=== PATIENT | male | born 1935 | race Caucasian/White ===

== ENCOUNTER → 2017-02-13 | Outpatient (CLI) | payer MEDICARE, BC | END | disposition home or self-care (01) | LOC: LAB 10:40 | PROVIDERS: ATTEND Urology | DX: Z12.5 Encounter for screening for malignant neoplasm of prostate (principal) | CPT/HCPCS: G0103 ==

== ENCOUNTER → 2017-03-13 | Outpatient (CLI) | payer MEDICARE, BC | END | disposition home or self-care (01) | LOC: LAB 09:28 | PROVIDERS: ATTEND Urology | DX: Z12.5 Encounter for screening for malignant neoplasm of prostate (principal); C61 Malignant neoplasm of prostate | CPT/HCPCS: G0103 ==

== ENCOUNTER → 2018-03-09 | Outpatient (CLI) | payer MEDICARE, BC ==
[2018-03-09 10:02] LABS: ALBUMIN 3.8 g/dL (3.4-5.0); ALBUMIN/GLOBULIN RATIO 1.2 (1.0-1.7); CREATININE 1.1 mg/dL (0.7-1.3); GFR 63.8; POTASSIUM 3.7 mmol/L (3.5-5.1); TOTAL BILIRUBIN 0.7 mg/dL (0.2-1.0); TOTAL PROTEIN 6.9 g/dL (6.4-8.2)
== END | disposition home or self-care (01) ==
LOC: LAB 08:44
PROVIDERS: ATTEND Family Medicine
DX: E78.2 Mixed hyperlipidemia (principal)
CPT/HCPCS: 36415; 80053; 80061

== ENCOUNTER → 2018-03-09 | Outpatient (CLI) | payer MEDICARE, BC ==
[2018-03-09 10:44] LABS: BASO % 1 % (0-3); EOS # 0.1 x10^3/uL (0.0-0.7); EOS % 2 % (0-3); LYMPH # 0.9 x10^3/uL (1.0-4.8); LYMPH % 17 % (24-48); MEAN CORPUSCULAR HEMOGLOBIN 32 pg (25-35); MEAN CORPUSCULAR HGB CONC 34 g/dL (31-37); MEAN CORPUSCULAR VOLUME 93 fL (79-100); MONO # 0.6 x10^3/uL (0.0-1.1); MONO % 10 % (0-9); NEUT # 3.8 x10^3uL (1.8-7.7); NEUT % 70 % (31-73); PLATELET COUNT 142 x10^3/uL (140-400); RED BLOOD COUNT 4.74 x10^6/uL (4.30-5.70); RED CELL DISTRIBUTION WIDTH 13.9 % (11.5-14.5); WHITE BLOOD COUNT 5.4 x10^3/uL (4.0-11.0)
== END | disposition home or self-care (01) ==
LOC: LAB 08:47
PROVIDERS: ATTEND Radiology Radiation Oncology
DX: C61 Malignant neoplasm of prostate (principal); E78.2 Mixed hyperlipidemia
CPT/HCPCS: 36415; 85025

== ENCOUNTER → 2018-04-06 | Outpatient (CLI) | payer MEDICARE, BC ==
[2018-04-06 09:22] LABS: BASO % 1 % (0-3); EOS # 0.1 x10^3/uL (0.0-0.7); EOS % 1 % (0-3); HEMATOCRIT 42.5 % (39.0-53.0); HEMOGLOBIN 14.6 g/dL (13.0-17.5); LYMPH # 0.7 x10^3/uL (1.0-4.8); LYMPH % 13 % (24-48); MEAN CORPUSCULAR HEMOGLOBIN 32 pg (25-35); MEAN CORPUSCULAR HGB CONC 34 g/dL (31-37); MEAN CORPUSCULAR VOLUME 94 fL (79-100); MONO # 0.4 x10^3/uL (0.0-1.1); MONO % 7 % (0-9); NEUT % 78 % (31-73); PLATELET COUNT 162 x10^3/uL (140-400); RED BLOOD COUNT 4.54 x10^6/uL (4.30-5.70); RED CELL DISTRIBUTION WIDTH 14.1 % (11.5-14.5); WHITE BLOOD COUNT 5.1 x10^3/uL (4.0-11.0)
== END | disposition home or self-care (01) ==
LOC: LAB 08:16
PROVIDERS: ATTEND Radiology Radiation Oncology
DX: C61 Malignant neoplasm of prostate (principal)
CPT/HCPCS: 36415; 85025

== ENCOUNTER → 2018-04-09 | Outpatient (CLI) | payer MEDICARE, BC ==
--- NOTE | 2018-04-09 17:17 | RAD ---
EXAM: Right arm sonogram. HISTORY: Palpable lump. TECHNIQUE: Sonographic imaging of the right antecubital fossa at the site of palpable concern was performed. COMPARISON: None. FINDINGS: There is a 4.9 x 2.3 x 0.6 cm lipoma or focal encapsulated fat within the antecubital fossa at the site of palpable concern. No suspicious lesion is seen within this location. IMPRESSION: Suspected 4.9 cm lipoma or encapsulated fat within the antecubital fossa at the site of palpable concern. Electronically signed by: Pretty Jaquez MD (04/09/2018 5:13 PM) [facility]
--- NOTE | 2018-04-09 17:56 | RAD ---
EXAM: Right of extremity venous Doppler sonogram. HISTORY: Swelling. TECHNIQUE: Rocha scale and color Doppler sonographic evaluation of the right upper extremity veins with spectral waveform analysis was performed. FINDINGS: There is normal color flow, normal compressibility and there are normal spectral waveforms in the right upper extremity veins. IMPRESSION: No Doppler evidence of upper extremity venous thrombosis. Electronically signed by: Pretty Jaquez MD (04/09/2018 5:53 PM) [facility]
== END | disposition home or self-care (01) ==
LOC: US 15:27
PROVIDERS: ATTEND Family Medicine
DX: M79.601 Pain in right arm (principal); M79.89 Other specified soft tissue disorders; E78.2 Mixed hyperlipidemia
CPT/HCPCS: 76881; 93971

== ENCOUNTER → 2018-05-04 | Outpatient (CLI) | payer MEDICARE, BC ==
[2018-05-04 08:55] LABS: BASO % 0 % (0-3); EOS # 0.1 x10^3/uL (0.0-0.7); EOS % 1 % (0-3); HEMATOCRIT 42.1 % (39.0-53.0); HEMOGLOBIN 14.4 g/dL (13.0-17.5); LYMPH # 0.7 x10^3/uL (1.0-4.8); LYMPH % 12 % (24-48); MEAN CORPUSCULAR HEMOGLOBIN 32 pg (25-35); MEAN CORPUSCULAR HGB CONC 34 g/dL (31-37); MEAN CORPUSCULAR VOLUME 94 fL (79-100); MONO # 0.4 x10^3/uL (0.0-1.1); MONO % 7 % (0-9); NEUT # 4.4 x10^3uL (1.8-7.7); NEUT % 80 % (31-73); PLATELET COUNT 158 x10^3/uL (140-400); RED BLOOD COUNT 4.47 x10^6/uL (4.30-5.70); RED CELL DISTRIBUTION WIDTH 14.3 % (11.5-14.5); WHITE BLOOD COUNT 5.5 x10^3/uL (4.0-11.0)
== END | disposition home or self-care (01) ==
LOC: LAB 08:06
PROVIDERS: ATTEND Radiology Radiation Oncology
DX: C61 Malignant neoplasm of prostate (principal)
CPT/HCPCS: 36415; 85025

== ENCOUNTER → 2018-06-01 | Outpatient (CLI) | payer MEDICARE, BC ==
[2018-06-01 08:57] LABS: BASO % 1 % (0-3); EOS # 0.1 x10^3/uL (0.0-0.7); EOS % 2 % (0-3); HEMATOCRIT 40.6 % (39.0-53.0); HEMOGLOBIN 13.9 g/dL (13.0-17.5); LYMPH # 0.5 x10^3/uL (1.0-4.8); LYMPH % 12 % (24-48); MEAN CORPUSCULAR HEMOGLOBIN 33 pg (25-35); MEAN CORPUSCULAR HGB CONC 34 g/dL (31-37); MEAN CORPUSCULAR VOLUME 95 fL (79-100); MONO # 0.5 x10^3/uL (0.0-1.1); MONO % 11 % (0-9); NEUT # 3.2 x10^3uL (1.8-7.7); NEUT % 75 % (31-73); PLATELET COUNT 155 x10^3/uL (140-400); RED BLOOD COUNT 4.28 x10^6/uL (4.30-5.70); RED CELL DISTRIBUTION WIDTH 14.4 % (11.5-14.5); WHITE BLOOD COUNT 4.4 x10^3/uL (4.0-11.0)
== END | disposition home or self-care (01) ==
LOC: LAB 07:57
PROVIDERS: ATTEND Radiology Radiation Oncology
DX: C61 Malignant neoplasm of prostate (principal); E78.2 Mixed hyperlipidemia
CPT/HCPCS: 36415; 85025

== ENCOUNTER → 2018-08-04 | Outpatient (CLI) | payer MEDICARE, BC ==
[2018-08-04 11:43] LABS: BASO % 0 % (0-3); EOS % 1 % (0-3); HEMOGLOBIN 13.7 g/dL (13.0-17.5); LYMPH # 0.5 x10^3/uL (1.0-4.8); LYMPH % 7 % (24-48); MEAN CORPUSCULAR HEMOGLOBIN 33 pg (25-35); MEAN CORPUSCULAR HGB CONC 34 g/dL (31-37); MEAN CORPUSCULAR VOLUME 96 fL (79-100); MONO # 0.5 x10^3/uL (0.0-1.1); MONO % 8 % (0-9); NEUT # 5.8 x10^3uL (1.8-7.7); NEUT % 84 % (31-73); PLATELET COUNT 168 x10^3/uL (140-400); RED BLOOD COUNT 4.17 x10^6/uL (4.30-5.70); RED CELL DISTRIBUTION WIDTH 14.1 % (11.5-14.5); WHITE BLOOD COUNT 6.9 x10^3/uL (4.0-11.0)
[2018-08-04 11:51] LABS: ALBUMIN 3.7 g/dL (3.4-5.0); ALBUMIN/GLOBULIN RATIO 1.2 (1.0-1.7); CALCIUM 9.4 mg/dL (8.5-10.1); CREATININE 1.3 mg/dL (0.7-1.3); GFR 52.6; POTASSIUM 3.5 mmol/L (3.5-5.1); TOTAL BILIRUBIN 0.7 mg/dL (0.2-1.0); TOTAL PROTEIN 6.8 g/dL (6.4-8.2)
== END | disposition home or self-care (01) ==
LOC: LAB 10:56
PROVIDERS: ATTEND Internal Medicine Hematology & Oncology
DX: C61 Malignant neoplasm of prostate (principal)
CPT/HCPCS: 36415; 80053; 85025; G0103; 84153

== ENCOUNTER 2018-10-10 10:10 | Emergency (ER) | payer MEDICARE, BC ==
[2018-10-10 10:10] VITALS: BP 109/46
[2018-10-10] MEDS ORDERED: IV NORMAL SALINE 1,000ML 1,000 ML IV ONE (10:30)
[2018-10-10 10:57] LABS: BASO % 1 % (0-3); EOS # 0.1 x10^3/uL (0.0-0.7); EOS % 1 % (0-3); HEMATOCRIT 40.2 % (39.0-53.0); HEMOGLOBIN 13.5 g/dL (13.0-17.5); LYMPH # 0.8 x10^3/uL (1.0-4.8); LYMPH % 15 % (24-48); MEAN CORPUSCULAR HEMOGLOBIN 32 pg (25-35); MEAN CORPUSCULAR HGB CONC 34 g/dL (31-37); MEAN CORPUSCULAR VOLUME 94 fL (79-100); MONO # 0.6 x10^3/uL (0.0-1.1); MONO % 11 % (0-9); NEUT # 3.9 x10^3uL (1.8-7.7); NEUT % 71 % (31-73); PLATELET COUNT 203 x10^3/uL (140-400); RED BLOOD COUNT 4.29 x10^6/uL (4.30-5.70); RED CELL DISTRIBUTION WIDTH 14.1 % (11.5-14.5); WHITE BLOOD COUNT 5.4 x10^3/uL (4.0-11.0)
[2018-10-10 11:33] LABS: FECAL OB PT NEGATIVE (NEG)
[2018-10-10 12:42] LABS: ALBUMIN 3.7 g/dL (3.4-5.0); ALBUMIN/GLOBULIN RATIO 1.2 (1.0-1.7); CALCIUM 8.4 mg/dL (8.5-10.1); CREATININE 1.3 mg/dL (0.7-1.3); GFR 52.6; POTASSIUM 3.5 mmol/L (3.5-5.1); TOTAL BILIRUBIN 0.8 mg/dL (0.2-1.0); TOTAL PROTEIN 6.7 g/dL (6.4-8.2)
[2018-10-10] MEDS ORDERED: FLUCONAZOLE 100 MG TABLET. PO ONE (13:45)
[2018-10-10] MEDS ORDERED: ONDANSETRON ODT 4 MG TAB.RAPDIS PO ONE (13:45)
[2018-10-10] MEDS ORDERED: ONDA4TAB10 SL (14:19)
[2018-10-10] MEDS ORDERED: METR500T PO (14:19)
--- NOTE | 2018-10-10 14:20 | PHYS DOC ---
Adult General Chief Complaint Chief Complaint: DIARRHEA HPI HPI Patient is a [age] year old [sex] who presents with [] Review of Systems Review of Systems Constitutional: Denies fever or chills [] Eyes: Denies change in visual acuity, redness, or eye pain [] HENT: Denies nasal congestion or sore throat [] Respiratory: Denies cough or shortness of breath [] Cardiovascular: No additional information not addressed in HPI [] GI: Denies abdominal pain, nausea, vomiting, bloody stools or diarrhea [] : Denies dysuria or hematuria [] Musculoskeletal: Denies back pain or joint pain [] Integument: Denies rash or skin lesions [] Neurologic: Denies headache, focal weakness or sensory changes [] Endocrine: Denies polyuria or polydipsia [] All other systems were reviewed and found to be within normal limits, except as documented in this note. Current Medications Current Medications Current Medications Medications (Trade) Dose Ordered Sig/Christiano Start Time Stop Time Status Last Admin Dose Admin Fluconazole (Diflucan) 200 mg 1X ONCE 10/10/18 13:45 10/10/18 13:46 DC 10/10/18 13:55 200 MG Ondansetron HCl (Zofran Odt) 4 mg 1X ONCE 10/10/18 13:45 10/10/18 13:46 DC 10/10/18 13:55 4 MG Sodium Chloride 1,000 ml @ 1,000 mls/hr 1X ONCE 10/10/18 10:30 10/10/18 11:29 DC 10/10/18 11:09 1,000 MLS/HR Allergies Allergies Allergies Coded Allergies Type Severity Reaction Last Updated Verified No Known Drug Allergies 10/10/18 No Physical Exam Physical Exam Constitutional: Well developed, well nourished, no acute distress, non-toxic appearance. [] HENT: Normocephalic, atraumatic, bilateral external ears normal, oropharynx moist, no oral exudates, nose normal. [] Eyes: PERRLA, EOMI, conjunctiva normal, no discharge. [] Neck: Normal range of motion, no tenderness, supple, no stridor. [] Cardiovascular:Heart rate regular rhythm, no murmur [] Lungs & Thorax: Bilateral breath sounds clear to auscultation [] Abdomen: Bowel sounds normal, soft, no tenderness, no masses, no pulsatile masses. [] Skin: Warm, dry, no erythema, no rash. [] Back: No tenderness, no CVA tenderness. [] Extremities: No tenderness, no cyanosis, no clubbing, ROM intact, no edema. [] Neurologic: Alert and oriented X 3, normal motor function, normal sensory function, no focal deficits noted. [] Psychologic: Affect normal, judgement normal, mood normal. [] Current Patient Data Lab Results Laboratory Tests Test 10/10/18 10:00 10/10/18 10:35 Stool Occult Blood Negative (NEG) White Blood Count 5.4 x10^3/uL (4.0-11.0) Red Blood Count 4.29 x10^6/uL (4.30-5.70) L Hemoglobin 13.5 g/dL (13.0-17.5) Hematocrit 40.2 % (39.0-53.0) Mean Corpuscular Volume 94 fL (79-100) Mean Corpuscular Hemoglobin 32 pg (25-35) Mean Corpuscular Hemoglobin Concent 34 g/dL (31-37) Red Cell Distribution Width 14.1 % (11.5-14.5) Platelet Count 203 x10^3/uL (140-400) Neutrophils (%) (Auto) 71 % (31-73) Lymphocytes (%) (Auto) 15 % (24-48) L Monocytes (%) (Auto) 11 % (0-9) H Eosinophils (%) (Auto) 1 % (0-3) Basophils (%) (Auto) 1 % (0-3) Neutrophils # (Auto) 3.9 x10^3uL (1.8-7.7) Lymphocytes # (Auto) 0.8 x10^3/uL (1.0-4.8) L Monocytes # (Auto) 0.6 x10^3/uL (0.0-1.1) Eosinophils # (Auto) 0.1 x10^3/uL (0.0-0.7) Basophils # (Auto) 0.0 x10^3/uL (0.0-0.2) Sodium Level 142 mmol/L (136-145) Potassium Level 3.5 mmol/L (3.5-5.1) Chloride Level 102 mmol/L (98-107) Carbon Dioxide Level 26 mmol/L (21-32) Anion Gap 14 (6-14) Blood Urea Nitrogen 14 mg/dL (8-26) Creatinine 1.3 mg/dL (0.7-1.3) Estimated GFR (Cockcroft-Gault) 52.6 BUN/Creatinine Ratio 11 (6-20) Glucose Level 91 mg/dL (70-99) Lactic Acid Level 1.5 mmol/L (0.4-2.0) Calcium Level 8.4 mg/dL (8.5-10.1) L Total Bilirubin 0.8 mg/dL (0.2-1.0) Aspartate Amino Transferase (AST) 40 U/L (15-37) H Alanine Aminotransferase (ALT) 31 U/L (16-63) Alkaline Phosphatase 90 U/L (46-116) Total Protein 6.7 g/dL (6.4-8.2) Albumin 3.7 g/dL (3.4-5.0) Albumin/Globulin Ratio 1.2 (1.0-1.7) EKG EKG [] Radiology/Procedures Radiology/Procedures [] Course & Med Decision Making Course & Med Decision Making Pertinent Labs and Imaging studies reviewed. (See chart for details) [] Dragon Disclaimer Dragon Disclaimer This electronic medical record was generated, in whole or in part, using a voice recognition dictation system. Departure Departure: Impression: Primary Impression: Diarrhea Additional Impression: Generalized weakness Disposition: 01 HOME, SELF-CARE Condition: STABLE Referrals: IRMA HENSLEY MD (PCP) Patient Instructions: Diarrhea, Weakness Scripts Ondansetron (ZOFRAN ODT) 4 Mg Tab.rapdis 1 TAB SL Q8HRS PRN for NAUSEA, #10 TAB Prov: LORI MENESES Jr. DO 10/10/18 Metronidazole (FLAGYL) 500 Mg Tablet 1 TAB PO QID for diarrhea/infection, #40 TAB Prov: LORI MENESES Jr. DO 10/10/18 Problem Qualifiers Primary Impression: Diarrhea Diarrhea type: unspecified type Qualified Codes: R19.7 - Diarrhea, unspecified LORI MENESES Jr. DO Oct 10, 2018 14:20
== END 2018-10-10 14:36 | disposition home or self-care (01) ==
LOC: ER 10:10
DX: R19.7 Diarrhea, unspecified (principal); R53.1 Weakness
CPT/HCPCS: 99285; Q0162; 80053; 82274; 83605; 85025; 87040; 87493; 96360; 96361; J7030

== ENCOUNTER 2018-10-12 02:00 | Inpatient (IN) | payer MEDICARE, BC ==
[~2018-10-12] VITALS: Ht 172.7 cm; Wt 92.5 kg
[~2018-10-12 02:00] MED LIST: METR500T PO; ONDA4TAB10 SL
[2018-10-12] MEDS ORDERED: IV NORMAL SALINE 1,000ML 1,000 ML IV ONE (02:30)
[2018-10-12] MEDS ORDERED: chlorproMAZINE IM 50 MG/2 ML AMPUL IM ONE (02:45)
[2018-10-12] MEDS ORDERED: diphenhydrAMINE 50 MG/ML VIAL IVP ONE (02:45)
[2018-10-12] MEDS ORDERED: LIDO:MAALOX 1:1 20 ML SINGLE DOSE. PO ONE (02:45)
[2018-10-12] MEDS ORDERED: ONDANSETRON PF 4 MG/2 ML VIAL. IV ONE (02:45)
--- NOTE | 2018-10-12 02:50 | PHYS DOC ---
Adult General Chief Complaint Chief Complaint Hiccups HPI HPI A very pleasant 82 years old gentleman with history of prostate cancer under chemotherapy presented to the emergency department with hiccups started 24 hours ago associated with nausea no vomiting diarrhea described as loose stool he was seen and evaluated emergency department treated yesterday and discharged home. Patient also complaining of generalized weakness and able to eat and able to ambulate due to weakness Is also complaining of tenderness in the left side of his abdomen Review of Systems Review of Systems Constitutional: Denies fever or chills [] Eyes: Denies change in visual acuity, redness, or eye pain [] HENT: Denies nasal congestion or sore throat [] Respiratory: Denies cough or shortness of breath [] Cardiovascular: No additional information not addressed in HPI [] : Denies dysuria or hematuria [] Musculoskeletal: Denies back pain or joint pain [] Integument: Denies rash or skin lesions [] Neurologic: Denies headache, focal weakness or sensory changes [] Endocrine: Denies polyuria or polydipsia [] All other systems were reviewed and found to be within normal limits, except as documented in this note. Current Medications Current Medications Current Medications Medications (Trade) Dose Ordered Sig/Christiano Start Time Stop Time Status Last Admin Dose Admin Chlorpromazine HCl (Thorazine Im) 25 mg 1X ONCE 10/12/18 02:45 10/12/18 02:46 DC 10/12/18 02:57 25 MG Diphenhydramine HCl (Benadryl) 12.5 mg 1X ONCE 10/12/18 02:45 10/12/18 02:46 DC 10/12/18 03:02 12.5 MG Info (Do NOT chart on this entry -- for MONITORING) 1 each PRN DAILY PRN 10/12/18 03:15 10/14/18 03:14 Iohexol (Omnipaque 300 Mg/ml) 75 ml 1X ONCE 10/12/18 03:15 10/12/18 03:16 DC 10/12/18 03:11 75 ML Multi-Ingredient Mouthwash/Gargle (Gi Cocktail) 20 ml 1X ONCE 10/12/18 02:45 10/12/18 02:46 DC Ondansetron HCl (Zofran) 4 mg 1X ONCE 10/12/18 02:45 10/12/18 02:46 DC 10/12/18 02:45 4 MG Sodium Chloride 500 ml @ 0 mls/hr 1X ONCE 10/12/18 03:00 10/12/18 03:04 DC 10/12/18 03:05 999 MLS/HR Allergies Allergies Allergies Coded Allergies Type Severity Reaction Last Updated Verified No Known Drug Allergies 10/10/18 No Physical Exam Physical Exam Constitutional: Well developed, well nourished, no acute distress, non-toxic appearance. [] HENT: Normocephalic, atraumatic, bilateral external ears normal, oropharynx moist, no oral exudates, nose normal. [] Eyes: PERRLA, EOMI, conjunctiva normal, no discharge. [] Neck: Normal range of motion, no tenderness, supple, no stridor. [] Cardiovascular:Heart rate regular rhythm, no murmur [] Lungs & Thorax: Bilateral breath sounds clear to auscultation [] Abdomen: Bowel sounds normal, soft,+ tenderness on the left lower side, no masses, no pulsatile masses. [] Skin: Warm, dry, no erythema, no rash. [] Back: No tenderness, no CVA tenderness. [] Extremities: No tenderness, no cyanosis, no clubbing, ROM intact, no edema. [] Neurologic: Alert and oriented X 3, normal motor function, normal sensory function, no focal deficits noted. [] Psychologic: Affect normal, judgement normal, mood normal. [] Current Patient Data Vital Signs Vital Signs Date Time Temp Pulse Resp B/P (MAP) Pulse Ox O2 Delivery O2 Flow Rate FiO2 10/12/18 03:45 60 21 114/64 (81) 95 Room Air 10/12/18 02:01 98.0 Lab Results Laboratory Tests Test 10/12/18 02:40 White Blood Count 5.5 x10^3/uL (4.0-11.0) Red Blood Count 3.84 x10^6/uL (4.30-5.70) L Hemoglobin 12.2 g/dL (13.0-17.5) L Hematocrit 36.2 % (39.0-53.0) L Mean Corpuscular Volume 94 fL (79-100) Mean Corpuscular Hemoglobin 32 pg (25-35) Mean Corpuscular Hemoglobin Concent 34 g/dL (31-37) Red Cell Distribution Width 14.1 % (11.5-14.5) Platelet Count 184 x10^3/uL (140-400) Neutrophils (%) (Auto) 72 % (31-73) Lymphocytes (%) (Auto) 16 % (24-48) L Monocytes (%) (Auto) 11 % (0-9) H Eosinophils (%) (Auto) 1 % (0-3) Basophils (%) (Auto) 1 % (0-3) Neutrophils # (Auto) 4.0 x10^3uL (1.8-7.7) Lymphocytes # (Auto) 0.9 x10^3/uL (1.0-4.8) L Monocytes # (Auto) 0.6 x10^3/uL (0.0-1.1) Eosinophils # (Auto) 0.1 x10^3/uL (0.0-0.7) Basophils # (Auto) 0.0 x10^3/uL (0.0-0.2) Sodium Level 143 mmol/L (136-145) Potassium Level 3.4 mmol/L (3.5-5.1) L Chloride Level 104 mmol/L (98-107) Carbon Dioxide Level 27 mmol/L (21-32) Anion Gap 12 (6-14) Blood Urea Nitrogen 17 mg/dL (8-26) Creatinine 1.2 mg/dL (0.7-1.3) Estimated GFR (Cockcroft-Gault) 57.7 BUN/Creatinine Ratio 14 (6-20) Glucose Level 76 mg/dL (70-99) Calcium Level 7.4 mg/dL (8.5-10.1) L Total Bilirubin 0.7 mg/dL (0.2-1.0) Aspartate Amino Transferase (AST) 46 U/L (15-37) H Alanine Aminotransferase (ALT) 30 U/L (16-63) Alkaline Phosphatase 80 U/L (46-116) Total Protein 6.2 g/dL (6.4-8.2) L Albumin 3.4 g/dL (3.4-5.0) Albumin/Globulin Ratio 1.2 (1.0-1.7) EKG EKG [] Radiology/Procedures Radiology/Procedures [] Course & Med Decision Making Course & Med Decision Making Pertinent Labs and Imaging studies reviewed. (See chart for details) [] Final Impression Final Impression admit to medicine [] Problems: (1) Hiccups (2) Generalized weakness Dragon Disclaimer Dragon Disclaimer This electronic medical record was generated, in whole or in part, using a voice recognition dictation system. PAUL RAMOS MD Oct 12, 2018 02:50
[2018-10-12] MEDS ORDERED: IV NORMAL SALINE 500ML 500 ML IV ONE (03:00)
[2018-10-12] MEDS ORDERED: CONTRAST GIVEN MC PRN (03:15)
[2018-10-12] MEDS ORDERED: IOHEXOL 300 MG/ML 75 ML VIAL. IV ONE ×2 (03:15→12:45)
[2018-10-12 03:33] LABS: BASO % 1 % (0-3); EOS # 0.1 x10^3/uL (0.0-0.7); EOS % 1 % (0-3); HEMATOCRIT 36.2 % (39.0-53.0); HEMOGLOBIN 12.2 g/dL (13.0-17.5); LYMPH # 0.9 x10^3/uL (1.0-4.8); LYMPH % 16 % (24-48); MEAN CORPUSCULAR HEMOGLOBIN 32 pg (25-35); MEAN CORPUSCULAR HGB CONC 34 g/dL (31-37); MEAN CORPUSCULAR VOLUME 94 fL (79-100); MONO # 0.6 x10^3/uL (0.0-1.1); MONO % 11 % (0-9); NEUT % 72 % (31-73); PLATELET COUNT 184 x10^3/uL (140-400); RED BLOOD COUNT 3.84 x10^6/uL (4.30-5.70); RED CELL DISTRIBUTION WIDTH 14.1 % (11.5-14.5); WHITE BLOOD COUNT 5.5 x10^3/uL (4.0-11.0)
--- NOTE | 2018-10-12 03:41 | RAD ---
PQRS Compliance Statement: One or more of the following individualized dose reduction techniques were utilized for this examination: 1. Automated exposure control 2. Adjustment of the mA and/or kV according to patient size 3. Use of iterative reconstruction technique CT abdomen/pelvis with contrast 10/12/2018 3:01 AM INDICATION: Left-sided abdominal pain, nausea and weakness. History of prostate cancer. COMPARISON: None available TECHNIQUE: Multiple axial CT images of the abdomen and pelvis were obtained after the intravenous administration of 60 mL Omnipaque 300. Coronal and sagittal reformats are provided. FINDINGS: Lung bases are clear. Heart size is within normal limits. Focal hypoattenuation in long the fissure of the ligamentum teres is suggestive of hepatic steatosis. There is a 7 mm hypoattenuating lesion in the inferior right hepatic lobe (series 2, image 28) which is too small characterize, however statistically favored to represent a simple cyst or hemangioma. Spleen is nonenlarged. Adrenal glands are normal in appearance. There is moderate fatty atrophy of the pancreas. Gallbladder surgically absent. No intrahepatic or extrahepatic biliary ductal dilatation. Abdominal aorta is normal in course and caliber. No pathologically enlarged lymph nodes are identified in the abdomen and pelvis. There is no free fluid or free intraperitoneal air. Minimal fluid is noted in the left iliopsoas bursa. The kidneys enhance symmetrically. There is a 8 mm calculus in the right renal pelvis which may intermittently obstruct. There is no hydronephrosis. There is urothelial wall thickening involving the right renal pelvis which may be secondary to inflammation. There is a 2 mm calculus in the superior pole the left kidney. There is a 2.7 cm cyst in the superior pole left kidney. Additional subcentimeter hypodense lesions are identified which are too small characterize, however statistically favor to represent simple cysts . Simple cyst in the inferior pole left kidney measures 17 mm. Small large bowel are normal in caliber. No evidence for bowel obstruction or inflammation. The appendix is not definitively visualized. No pericecal inflammatory changes are identified. Mild bladder wall thickening may be secondary to underdistention versus chronic outlet obstruction. Fiducial markers are identified within the prostate gland. Prostate is mildly enlarged. Sclerotic densities noted throughout the lumbar spine and the left iliac bone and sacrum suggest osseous metastatic disease. No pathologic fracture is identified. IMPRESSION: 1. There is an 8 mm calculus in the right renal pelvis which may intermittently obstruct. 2. No hydronephrosis. Nonobstructing renal calculi are identified on the left. 3. Bilateral renal cysts. 4. Post therapy changes are noted involving the prostate. Mild bladder wall thickening may be secondary to underdistention versus chronic outlet obstruction. Osseous metastatic disease is noted without evidence for pathologic fracture. Electronically signed by: Bibiana Yu MD (10/12/2018 3:38 AM) [facility]
--- NOTE | 2018-10-12 03:42 | RAD ---
Chest radiograph 10/12/2018 2:50 AM INDICATION: Hiccups, weakness and cough COMPARISON: None available TECHNIQUE: Frontal view of the chest is provided. FINDINGS: The cardiomediastinal silhouette is within normal limits. Right chest wall infusion port catheter is identified with the distal tip projecting over the superior vena cava. There are no pleural effusions. There is no pulmonary vascular congestion. There is no pneumothorax. The lungs are clear. No significant osseous abnormality is identified. IMPRESSION: No acute cardiopulmonary process. Electronically signed by: Bibiana Yu MD (10/12/2018 3:39 AM) [facility]
[2018-10-12 03:46] LABS: ALBUMIN 3.4 g/dL (3.4-5.0); ALBUMIN/GLOBULIN RATIO 1.2 (1.0-1.7); CALCIUM 7.4 mg/dL (8.5-10.1); CREATININE 1.2 mg/dL (0.7-1.3); GFR 57.7; POTASSIUM 3.4 mmol/L (3.5-5.1); TOTAL BILIRUBIN 0.7 mg/dL (0.2-1.0); TOTAL PROTEIN 6.2 g/dL (6.4-8.2)
[2018-10-12] MEDS ORDERED: IV NORMAL SALINE 1,000ML 1,000 ML IV SCH (04:15)
[2018-10-12] MEDS ORDERED: ONDANSETRON PF 4 MG/2 ML VIAL. IV PRN (04:15)
[2018-10-12 05:11] VITALS: BP 132/70
[2018-10-12] MEDS ORDERED: AMLO5TAB4 PO (07:24)
[2018-10-12] MEDS ORDERED: ABIR250T PO (07:30)
[2018-10-12] MEDS ORDERED: TAMS0.4C97 PO (07:30)
[2018-10-12] MEDS ORDERED: PRED5TAB PO (07:30)
[2018-10-12] MEDS ORDERED: MULT-246 PO (07:30)
[2018-10-12] MEDS ORDERED: ATOR10TA PO (07:30)
[2018-10-12] MEDS ORDERED: OMEG-141 PO (07:30)
[2018-10-12] MEDS ORDERED: CALC-157 PO (07:30)
[2018-10-12] MEDS ORDERED: IBUP1CAP PO (07:33)
[2018-10-12] MEDS ORDERED: ACET500T68 PO (07:33)
[2018-10-12 10:56] VITALS: BP 106/57
[2018-10-12] MEDS: PANTOPRAZOLE IV 40 MG VIAL. IVP SCH ×2 (11:59→21:29)
[2018-10-12] MEDS ORDERED: FLUCONAZOLE 200MG/100ML PREMIX 100 ML IV SCH (12:00)
[2018-10-12] MEDS: POTASSIUM CL 20MEQ D5-0.45NACL 1,000 ML IV SCH (12:00)
--- NOTE | 2018-10-12 12:14 | HP ---
ADMIT DATE: 10/12/2018 HISTORY OF PRESENT ILLNESS: The patient is an 82-year-old male patient who was brought to the Emergency Room as he continued to have nausea, vomiting and diarrhea described as loose stools. She was seen at his primary care physician 4 days ago on Friday and apparently he was seen and evaluated. He was seen again on Friday morning by his primary care physician, was sent to the Emergency Room for low blood pressure and was treated with IV fluids and was discharged home; however, the patient continued to have nausea, vomiting, constant hiccupping and generalized weakness. The patient is unable to eat or drink and too weak to ambulate and was brought to the Emergency Room. He also complained of tenderness in his left side of his abdomen. He has had extensive lab work in the Emergency Room, which was unremarkable. He did have a CT scan of the abdomen and pelvis which basically showed there is an 8 mm calculus in the right renal pelvis, which may intermittently obstruct. No hydronephrosis, no obstructing calculi identified in the left side. He has bilateral renal cysts. Post-therapy changes are noted involving the prostate, mild bladder wall thickening, may be secondary to under distention versus chronic outlet obstruction, osseous metastatic lesion is noted without evidence for pathologic fracture. His liver showed hypoattenuation consistent with hepatic steatosis. There is a 7 mm hypoattenuation lesion in the inferior right hepatic lobe, which is too small to characterize; however, statistically favored to represent a small cyst or hemangioma. Spleen is not enlarged. Adrenal glands are normal in appearance. There is moderate fatty atrophy of the pancreas, gallbladder surgically absent. No intrahepatic or extrahepatic biliary ductal dilatation. Abdominal aorta is normal in course and caliber. No pathologically enlarged lymph nodes are identified in the abdomen and pelvis. There is no free fluid or free intraperitoneal air, minimal fluid noted in the left iliopsoas bursa. The kidneys enhanced symmetrically, small and large bowel are normal in caliber. No evidence of bowel obstruction or inflammation. Appendix is not definitely visualized. No pericecal inflammatory changes identified. Patient was admitted for generalized weakness, nausea, vomiting, diarrhea and constant hiccupping. PAST MEDICAL HISTORY: Significant for hypertension, benign prostatic hypertrophy, prostate cancer, osteoarthritis. The patient has metastatic prostate cancer. PAST SURGICAL HISTORY: Significant for appendectomy, cholecystectomy, partial colectomy for perforated colon. The patient has bilateral cataract extraction and bilateral total knee arthroplasty. He has esophagogastroduodenoscopy and colonoscopy. ALLERGIES: He apparently has no known drug allergies. FAMILY HISTORY: He has 2 brothers who are still alive and younger and had prostate cancer. His father at the age of 72 because of pancreatic cancer. His third brother of lung cancer at the age of 70. His mother at age of 96 because of questionable myocardial infarction. He has 4 sisters are alive and healthy. SOCIAL HISTORY: He is , has 4 daughters and one son. He never smoked, does not drink alcohol. 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 REVIEW OF SYSTEMS: The patient denied any blurring of vision. He has bilateral cataract extraction, but denied any glaucoma or macular degeneration. Has bilateral hearing aids. Denied any stuffy nose, nosebleed or postnasal drip. Did complain of sore throat and difficulty swallowing solids. He did have a complaint of nausea, vomiting as well as diarrhea. Denied any hematemesis, melena or hematochezia. Denied any dysuria, frequency or hematuria. Denied any chest pain, shortness of breath, cough, phlegm or hemoptysis. Did complain of a constant hiccupping. Denied any chills, rigors or fever. PHYSICAL EXAMINATION: GENERAL: When I examined him, he was somewhat pale, but no jaundice or cyanosis. No lymphadenopathy, no thyromegaly. No jugular venous distension. No limb edema. VITAL SIGNS: His heart rate was 60, blood pressure was 106/57. His temperature was 98.5, respiratory rate was 20, and oxygen saturation was 95%. HEAD, EYES, EARS, NOSE AND THROAT: Showed normocephalic, atraumatic. NECK: Supple. HEART: Showed normal first and second heart sounds. No gallop, rub or murmur. CHEST: Clear to auscultation. No crepitation or rhonchi. ABDOMEN: Distended, soft, nontender. No guarding or rigidity. No organomegaly. Hernial orifice intact. Bowel sounds normal. NEUROLOGIC: He was awake, alert, responding appropriately. All cranial nerves intact. EXTREMITIES: He moves extremities without difficulty. LABORATORY DATA: His lab work on admission showed a white cell count 5500, hemoglobin 12.2, hematocrit 36, MCV 94 and platelet count of 184,000. His chemistry showed a serum sodium 143, potassium 3.4, chloride 104, bicarbonate 27, anion gap of 12, BUN of 17, creatinine 1.2, estimated GFR was 58 mL per minute. He has glucose of 76, calcium was 7.4. Total bilirubin, AST, ALT, alkaline phosphatase were normal. Total protein was 6.2, albumin 3.4. His chest x-ray showed that the cardiomediastinal silhouette is within normal limits. Right chest wall ____. Fourth catheter is identified within the distal tip projecting over the superior vena cava. There are no pleural effusions. There is no pulmonary vascular congestion and no pneumothorax. The lungs are clear. No significant osseous abnormalities identified. The CT scan of the abdomen and pelvis showed that the patient has an 8 mm calculus in the right renal pelvis, which may intermittently obstructive, no hydronephrosis, non-obstructing or obstructing renal calculi identified on the left. The patient has bilateral renal cysts. Post-therapy changes are noted involving the prostate with mild bladder wall thickening that may be secondary to under distention versus chronic outlet obstruction. Also, has metastatic disease is noted without evidence for pathological fracture, small and large bowel are normal in caliber. No evidence of bowel obstruction or inflammation. Appendix is not identified, it is not definitely visualized, very cecal inflammatory changes are identified. ASSESSMENT: This is an 82-year-old male patient who was admitted with recurrent bouts of nausea, vomiting, diarrhea as well as hiccupping. He was treated for a yeast infection in his throat. PLAN: My plan is to put him on a clear liquid diet, changes IV fluid to D5 half normal with potassium chloride. Start him on IV Protonix as well as Diflucan for possible esophageal candidiasis. I will also start him on baclofen for his hiccupping and decide further management accordingly. EUNICE ERWIN MD DR: PANKAJ/scarlett JOB#: [id number] / [id number]
[2018-10-12] MEDS: NYSTATIN 100,000 UNITS/ML ORAL SUSPENSION 60ML BOTTLE. SWSW SCH ×3 (13:09→21:29)
[2018-10-12 14:53] VITALS: BP 98/55
--- NOTE | 2018-10-12 15:11 | RAD ---
CT of the neck with contrast, 10/12/2018: HISTORY: Dysphasia Multidetector CT imaging was performed following an IV bolus injection of iodinated contrast material. The study is partially compromised by patient motion artifact. There is a 1.7 cm low-density lesion in the lower pole of the left lobe of the thyroid gland with rim-like enhancement. This is a nonspecific appearance. The thyroid gland is within normal limits in overall size. There is mild asymmetry of the piriform sinuses. No definite laryngeal mass is seen. The subglottic trachea is not narrowed. The epiglottis and hypopharynx are unremarkable. The parotid and submandibular glands show no abnormality. A right jugular venous catheter is in place extending into the superior vena cava. There is only minimal calcific plaquing at the carotid bifurcations. No cervical adenopathy is seen. There is minimal mucosal thickening in the sphenoid sinuses. Moderate multilevel hypertrophic degenerative changes are present in the cervical and upper thoracic spine. Several sclerotic foci are seen in upper thoracic vertebrae. IMPRESSION: 1. Small nonspecific left thyroid nodule. 2. Mild mucosal thickening in the sphenoid sinus. 3. Moderate multilevel degenerative change in the spine. 4. Several sclerotic foci in the upper thoracic spine raising the possibility of metastatic disease in this patient with a history of prostate cancer. PQRS Compliance Statement: One or more of the following individualized dose reduction techniques were utilized for this examination: 1. Automated exposure control 2. Adjustment of the mA and/or kV according to patient size 3. Use of iterative reconstruction technique Electronically signed by: Vikash Park MD (10/12/2018 3:08 PM) [facility]
[2018-10-12 18:31] LABS: CLARITY,URINE CLOUDY; COLOR,URINE YELLOW
[2018-10-12 18:32] LABS: BACTERIA,URINE 0 /HPF (0-FEW); BILIRUBIN,URINE NEG (NEG); GLUCOSE,URINE NEG (NEG); NITRITE,URINE NEG (NEG); RBC,URINE >40 /HPF (0-2); SQUAMOUS EPITHELIAL CELL,UR FEW /LPF; UROBILINOGEN,URINE 0.2 mg/dL (0.2 mg/dL); WBC,URINE OCC /HPF (0-4)
[2018-10-12] MEDS ORDERED: LIDOCAINE/PRILOCAINE TOPICAL CREAM 5GM TUBE. TP ONE (18:45)
[2018-10-12 19:55] VITALS: BP 137/70
[2018-10-12 23:13] VITALS: BP 108/71
--- NOTE | 2018-10-13 00:42 | EKG ---
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
[2018-10-13] MEDS: POTASSIUM CL 20MEQ D5-0.45NACL 1,000 ML IV SCH (02:50)
[2018-10-13 05:41] VITALS: BP 110/63
[2018-10-13 06:02] LABS: HEMOGLOBIN 11.2 g/dL (13.0-17.5); RED BLOOD COUNT 3.51 x10^6/uL (4.30-5.70); RED CELL DISTRIBUTION WIDTH 14.2 % (11.5-14.5); WHITE BLOOD COUNT 6.8 x10^3/uL (4.0-11.0)
[2018-10-13 06:15] LABS: ALBUMIN 2.9 g/dL (3.4-5.0); CALCIUM 7.1 mg/dL (8.5-10.1); CREATININE 1.1 mg/dL (0.7-1.3); GFR 63.8; POTASSIUM 3.2 mmol/L (3.5-5.1); TOTAL BILIRUBIN 0.5 mg/dL (0.2-1.0); TOTAL PROTEIN 5.8 g/dL (6.4-8.2)
[2018-10-13] MEDS: NYSTATIN 100,000 UNITS/ML ORAL SUSPENSION 60ML BOTTLE. SWSW SCH (08:12)
[2018-10-13] MEDS: PANTOPRAZOLE IV 40 MG VIAL. IVP SCH (08:13)
[2018-10-13] MEDS ORDERED: SIMETHICONE 80 MG TAB.CHEW PO PRN (09:00)
[2018-10-13 11:11] VITALS: BP 134/72
--- NOTE | 2018-10-13 14:03 | DS ---
DATE OF DISCHARGE: 10/13/2018 NO DICTATION EUNICE ERWIN MD DR: PANKAJ/scarlett JOB#: [id number] / [id number]
--- NOTE | 2018-10-13 14:42 | DS ---
DATE OF DISCHARGE: 10/13/2018 HISTORY OF PRESENT ILLNESS: The patient is an 82-year-old male patient who was admitted yesterday with recurrent bouts of nausea, vomiting, and diarrhea described as loose stool. He was seen at his primary care physician 4 days prior to admission. Apparently he was evaluated again next day and was sent to the Emergency Room because of low blood pressure and was treated with IV fluid and was discharged home. However, the patient continued to have nausea, vomiting, constant hiccupping, generalized weakness and odynophagia. He was unable to eat or drink and too weak to ambulate and was brought to the Emergency Room. He also complained of tenderness in his left lower quadrant. He had an extensive lab work in the Emergency Room, which was unremarkable. He did have a CT scan of the abdomen and pelvis, which basically showed no bowel obstruction, no hydronephrosis. He has mild bladder wall thickening. Given that he has severe hiccupping, I started him on IV chlorpromazine 25 mg in 100 mL every 6 hours. He was recently treated for oropharyngeal candidiasis and therefore I treated him also with nystatin suspension 5 mL swish and swallow 4 times a day and started him on clear liquid diet together with IV fluid as he was hypokalemic. Nursing staff noted that the patient did not urinate the whole day, so we scanned his bladder and was found to have more than 400 mL of urine and we did place a Gunter catheter. However, the patient complained of severe pain and eventually we removed the catheter. Subsequently, he managed to urinate without any difficulty, although continued to complain of abdominal pain. His hiccupping has improved, but continued to have nausea, but no vomiting. He continued to have difficulty swallowing and nausea, although the hiccupping has improved. He continued to have severe abdominal pain and given the multiplicity of the problems, I recommended transferring him to [facility] so that he can consult with the pocket cutter as he may require upper GI endoscopy as well as urologist and the oncologist. PHYSICAL EXAMINATION: GENERAL: When I saw him this morning, he was sitting slightly propped up in bed, in no apparent respiratory distress. He was pale, but no jaundice, cyanosis, or thyromegaly. No jugular venous distention. No limb edema. VITAL SIGNS: His heart rate was 68, blood pressure was 134/72, temperature was 99.6, respiratory rate was 20, and oxygen saturation was 93% on room air. HEAD, EYES, EARS, NOSE, AND THROAT: Showed normocephalic, atraumatic. NECK: Supple. HEART: Showed normal first and second heart sounds. No gallop, rub, or murmur. CHEST: Clear to auscultation. No crepitation or rhonchi. ABDOMEN: Distended, soft, nontender. No guarding or rigidity. No organomegaly. Hernial orifice intact. Bowel sounds normal. NEUROLOGIC: He was awake, alert, responding appropriately. All cranial nerves intact. He moves all extremities, although he is very weak. His intake over the last 24 hours was 2000, output was 850. LABORATORY DATA: His lab work this morning showed a white cell count of 6800, hemoglobin 11, hematocrit 33, MCV 94, and platelet count of 166,000. His chemistry showed a serum sodium of 140, potassium 3.2, chloride 105, bicarbonate 26, anion gap of 9, BUN 12, creatinine 1.1, estimated GFR was 64 mL per minute. Her glucose was 123, calcium was 7.1. Total bilirubin, AST, ALT, alkaline phosphatase were normal. Total protein was 5.8, albumin was 2.9. His urinalysis showed the urine was yellow, cloudy with a pH of 6.5, specific gravity of 1.015. There was small amount of protein. The urine was negative for glucose, trace of ketones, large amount of blood, negative for nitrite and leukocyte esterase. There are more than 40 rbc's, no wbc's, and no bacteria. DISCHARGE MEDICATIONS: The patient was transferred to [facility] to continue on nystatin suspension swish and swallow 4 times a day, Protonix 40 mg IV twice a day, chlorpromazine hydrochloride 25 mg in 1500 mL IV every 6 hours. He is on D5 half normal with 20 mEq of potassium chloride IV at 75 mL per hour, ondansetron 4 mg IV. FINAL DISCHARGE DIAGNOSES: Dysphagia and odynophagia with possible viral or Candidal esophagitis, metastatic prostate cancer, benign prostatic hypertrophy, generalized osteoarthritis. My plan is to consult the pocket cutter, the urologist as well as the oncologist. EUNICE ERWIN MD DR: PANKAJ/scarlett JOB#: [id number] / [id number]
== END 2018-10-13 12:40 | disposition short-term general hospital (02) | DRG 370 ==
LOC: ER 02:00 → 1 SOUTH 04:50
PROVIDERS: ADMIT Internal Medicine; ATTEND Internal Medicine
DX: B37.81 Candidal esophagitis (principal); R13.12 Dysphagia, oropharyngeal phase; D18.03 Hemangioma of intra-abdominal structures; I10 Essential (primary) hypertension; C61 Malignant neoplasm of prostate; K76.0 Fatty (change of) liver, not elsewhere classified; K86.89 Other specified diseases of pancreas; M15.9 Polyosteoarthritis, unspecified; N20.0 Calculus of kidney; N28.1 Cyst of kidney, acquired; N40.0 Benign prostatic hyperplasia without lower urinary tract symptoms; Z96.653 Presence of artificial knee joint, bilateral; Z80.0 Family history of malignant neoplasm of digestive organs; Z80.1 Family history of malignant neoplasm of trachea, bronchus and lung; Z80.42 Family history of malignant neoplasm of prostate; Z85.46 Personal history of malignant neoplasm of prostate; Z90.49 Acquired absence of other specified parts of digestive tract; Z98.41 Cataract extraction status, right eye; Z98.42 Cataract extraction status, left eye; Z79.899 Other long term (current) drug therapy
CPT/HCPCS: 36415; 70491; 71045; 74177; 80053; 81001; 82274; 83605; 85025; 85027; 87040; 87493; 93005; 96361; 96372; 96374; 96375; C9113; J1200; J2405; J3230; J7040; Q9967; 99285-25; J7030

== ENCOUNTER 2019-10-15 08:43 | Emergency (ER) | payer MEDICARE, BC ==
[~2019-10-15 08:43] MED LIST changes: +ABIR250T PO; +ACET500T68 PO; +AMLO5TAB4 PO; +ATOR10TA PO; +CALC-157 PO; +IBUP1CAP PO; +MULT-246 PO; +OMEG-141 PO; +PRED5TAB PO; +TAMS0.4C97 PO
--- NOTE | 2019-10-15 09:13 | EKG ---
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
[2019-10-15] MEDS ORDERED: ONDANSETRON PF 4 MG/2 ML VIAL. IV ONE (09:15)
--- NOTE | 2019-10-15 09:27 | PHYS DOC ---
Past History Past Medical History: Cancer, Diverticulitis, Hypertension Past Surgical History: Cancer Surgery, Other Additional Past Surgical Histo: left knee; colon resection for diverticulitis Alcohol Use: None Drug Use: None Adult General Chief Complaint Chief Complaint: ABDOMINAL PAIN HPI HPI Patient is a [83-year-old male is presenting with abdominal pain left lower quadrant onset last night associated with belching he has had intermittent issues with this location he did 40 years ago have a colon resection for diverticulitis seems that he has had some intermittent symptoms that usually go away but today they have been constant described as burning and warm sensation left lower quadrant feels like he needs to have gas but unable to do so positive belching no vomiting no chest pain no fever tried gasx per usual with no relief Review of Systems Review of Systems Constitutional: Denies fever or chills [] Eyes: Denies change in visual acuity, redness, or eye pain [] HENT: Denies nasal congestion or sore throat [] Respiratory: Denies cough or shortness of breath [] Cardiovascular: No additional information not addressed in HPI [] GI: Neurologic: Denies headache, focal weakness or sensory changes [] Endocrine: Denies polyuria or polydipsia [] All other systems were reviewed and found to be within normal limits, except as documented in this note. Current Medications Current Medications Current Medications Medications (Trade) Dose Ordered Sig/Christiano Start Time Stop Time Status Last Admin Dose Admin Fentanyl Citrate (Fentanyl 2ml Vial) 50 mcg 1X ONCE 10/15/19 09:15 10/15/19 09:16 DC Ondansetron HCl (Zofran) 4 mg 1X ONCE 10/15/19 09:15 10/15/19 09:16 DC Allergies Allergies Allergies Coded Allergies Type Severity Reaction Last Updated Verified No Known Drug Allergies 10/15/19 No Physical Exam Physical Exam Constitutional: Well developed, well nourished, no acute distress, non-toxic appearance. [] HENT: Normocephalic, atraumatic, bilateral external ears normal, oropharynx moist, no oral exudates, nose normal. [] Eyes: PERRLA, EOMI, conjunctiva normal, no discharge. [] Neck: Normal range of motion, no tenderness, supple, no stridor. [] Cardiovascular:Heart rate regular rhythm, no murmur [] Lungs & Thorax: Bilateral breath sounds clear to auscultation [] abdomen there is llq tenderness, no masses, no pulsatile masses. [] surgical inicsion noted lower abdomen well healed. no peritoneal signs Skin: Warm, dry, no erythema, no rash. [] Back: No tenderness, no CVA tenderness. [] Extremities: No tenderness, no cyanosis, no clubbing, ROM intact, no edema. [] Neurologic: Alert and oriented X 3, normal motor function, normal sensory function, no focal deficits noted. [] Psychologic: Affect normal, judgement normal, mood normal. [] Current Patient Data Vital Signs Vital Signs Date Time Temp Pulse Resp B/P (MAP) Pulse Ox O2 Delivery O2 Flow Rate FiO2 10/15/19 08:55 97.7 81 24 99 Room Air Lab Results noted normal creatinine noted pancytopenia likely related to underlying bony prostate cancer. EKG EKG []EKG shows normal sinus rhythm rate of 84 no obvious acute ischemic changes noted interpreted by me the time of encounter. Radiology/Procedures Radiology/Procedures [] IMPRESSION: 1. There is moderate left hydroureteronephrosis with a mid left ureteral calculus measuring 2 mm. There is associated fat stranding which may be inflammatory or infectious. Correlate with urinalysis to assess for superimposed infection. 2. There is a 13 mm axis in the right renal pelvis which may intermittently obstruct. No right-sided hydronephrosis. Mild ureteral wall thickening suggestive of a chronic process. 3. Fiducial markers are noted within the prostate. There is increase in size and number of osseous sclerotic lesions suspicious for progression of osseous metastatic disease. Correlate with prostate specific antigen. 4. 7 mm hypodensity in inferior right hepatic lobe is indeterminate, not definitively seen on prior examination. Further characterization with MRI may be of benefit if clinically warranted. Electronically signed by: Bibiana Yu MD (10/15/2019 11:09 AM) [facility] Course & Med Decision Making Course & Med Decision Making Pertinent Labs and Imaging studies reviewed. (See chart for details) []83-year-old male with a prior history of metastatic prostate cancer currently not getting treatment prior diverticulitis with colon resection over 40 years ago issues with esophagitis chronic dyspepsia per chart review presenting today with left lower quadrant pain. Workup for diverticulitis in progress CT scan did show a 2 mm mid ureteral stone on the left. Patient was given morphine with improvement in the pain IV fluids were given patient is already on Flomax. I noted the lung finding patient has been coughing will give some Levaquin for treatment of possible pneumonia I did talk to the about the importance of follow-up given his cancer history to ensure this finding clears up she is aware of this within 6 weeks, also to follow up [facility] oncologist regarding ct results. I noted the right-sided renal pelvis finding. I believe this is a chronic process as per the radiologist impression. In addition I reviewed the last CT scan from 2018 with a very similar if not identical finding. In addition the patient has no symptoms at all on the right side clinically and the creatinine is completely normal 1.1 at Or below his usual baseline. In addition the symptomatic stone is only 2 mm and is very likely to pass on its own. In light of all that I think symptomatic conservative management is reasonable at this time but I did give the patient strict precautions to come back for vomiting severe pain fever greater than 100.5 or not improving as expected. I also asked them to go back to the primary care doctor next week Friday or Friday for repeat lab work to check creatinine and potassium. Potassium supplementation will also be provided. Patient and the are both quite reliable and aware of the plan. Dragon Disclaimer Dragon Disclaimer This electronic medical record was generated, in whole or in part, using a voice recognition dictation system. Departure Departure: Impression: Primary Impression: Nephrolithiasis Disposition: 01 HOME, SELF-CARE Condition: IMPROVED Referrals: IRMA HENSLEY MD (PCP) Patient Instructions: Kidney Stones Additional Instructions: SEE YOUR cancer doctor or primary doctor in [address] scan of the lung to ensure clearance. Return to primary doctor early next week within 2-3 days for repeat blood work to check h kidney function and potassium. Come back to the emergency room right away for severe pain generalized weakness unable to eat or drink or fever greater than 100.5 Scripts Potassium Citrate (POTASSIUM CITRATE) 10 Meq Tablet.er 1 TAB PO BID for HYPOKALEMIA, #60 TAB Prov: SHRUTHI GARDNER MD 10/15/19 Hydrocodone Bit/Acetaminophen (NORCO 5-325 TABLET) 1 Each Tablet 1-2 TAB PO Q4-6HRS PRN for PAIN, #20 TAB Prov: SHRUTHI GARDNER MD 10/15/19 Levofloxacin (LEVAQUIN) 750 Mg Tablet 1 TAB PO DAILY for PNEUMONIA for 7 Days, #7 TAB 0 Refills Prov: SHRUTHI GARDNER MD 10/15/19 SHRUTHI GARDNER MD Oct 15, 2019 09:27
[2019-10-15 09:44] LABS: BASO % 1 % (0-3); EOS % 0 % (0-3); HEMATOCRIT 26.6 % (39.0-53.0); HEMOGLOBIN 8.4 g/dL (13.0-17.5); LYMPH # 0.3 x10^3/uL (1.0-4.8); LYMPH % 9 % (24-48); MEAN CORPUSCULAR HEMOGLOBIN 29 pg (25-35); MEAN CORPUSCULAR HGB CONC 32 g/dL (31-37); MEAN CORPUSCULAR VOLUME 92 fL (79-100); MONO # 0.3 x10^3/uL (0.0-1.1); MONO % 9 % (0-9); NEUT # 2.5 x10^3uL (1.8-7.7); NEUT % 81 % (31-73); PLATELET COUNT 66 x10^3/uL (140-400); RED BLOOD COUNT 2.88 x10^6/uL (4.30-5.70); RED CELL DISTRIBUTION WIDTH 20.3 % (11.5-14.5); WHITE BLOOD COUNT 3.1 x10^3/uL (4.0-11.0)
[2019-10-15 09:51] LABS: ALBUMIN 3.2 g/dL (3.4-5.0); ALBUMIN/GLOBULIN RATIO 1.1 (1.0-1.7); CALCIUM 8.3 mg/dL (8.5-10.1); CREATININE 1.1 mg/dL (0.7-1.3); GFR 63.6; TOTAL BILIRUBIN 0.5 mg/dL (0.2-1.0); TOTAL PROTEIN 6.1 g/dL (6.4-8.2)
[2019-10-15 09:57] LABS: POTASSIUM 2.9 mmol/L (3.5-5.1)
[2019-10-15] MEDS ORDERED: POTASSIUM CHLORIDE 20 MEQ TABLET.ER. PO ONE (10:30)
[2019-10-15] MEDS ORDERED: CONTRAST GIVEN MC PRN (10:45)
[2019-10-15] MEDS ORDERED: IOHEXOL 300 MG/ML 75 ML VIAL. IV ONE (10:45)
[2019-10-15 11:04] LABS: BILIRUBIN,URINE NEG (NEG); CLARITY,URINE CLEAR; COLOR,URINE YELLOW; GLUCOSE,URINE NEG (NEG); NITRITE,URINE NEG (NEG); UROBILINOGEN,URINE 0.2 mg/dL (0.2 mg/dL)
[2019-10-15 11:05] LABS: BACTERIA,URINE 0 /HPF (0-FEW); SQUAMOUS EPITHELIAL CELL,UR FEW /LPF
[2019-10-15 11:12] LABS: PLT ESTIMATE DECREASED (ADEQUATE)
--- NOTE | 2019-10-15 11:12 | RAD ---
PQRS Compliance Statement: One or more of the following individualized dose reduction techniques were utilized for this examination: 1. Automated exposure control 2. Adjustment of the mA and/or kV according to patient size 3. Use of iterative reconstruction technique CT abdomen/pelvis with contrast 10/15/2019 10:09 AM INDICATION: Left lower quadrant pain COMPARISON: CT abdomen/pelvis 10/12/2018 TECHNIQUE: Multiple axial CT images of the abdomen and pelvis were obtained after the intravenous administration of 75 mL Omnipaque 300. Coronal and sagittal reformats are provided. FINDINGS: New small right and trace left pleural effusions with adjacent compressive atelectasis versus infiltrates. Groundglass opacity in the right middle lobe measures 8 mm (series 2, image 3). Heart size is within normal limits. There is a 7 mm hypodensity in the inferior right hepatic lobe, segment , which is too small to characterize. Spleen is normal in appearance. Adrenal glands are normal. There is mild to moderate atrophy of the pancreas without peripancreatic inflammatory changes or suspicious hepatic mass. Gallbladder surgically absent. No intrahepatic or extrahepatic biliary ductal dilatation is identified. Abdominal aorta is normal in course and caliber. There are no pathologically enlarged lymph nodes in abdomen and pelvis. There is no free intraperitoneal air. There is trace perisplenic free fluid. There is circumferential wall thickening involving the lower rectum. Minimal presacral edema is present. Minimal oral contrast is visualized. Small large bowel loops are normal in caliber. No evidence for bowel obstruction or inflammation. There is a 13 mm calculus identified in the right renal pelvis with mild ureteral wall thickening and adjacent inflammation. No significant right-sided hydronephrosis. Findings may represent chronic changes. There is moderate left hydronephrosis with periureteral fat stranding. There is a 2 mm calculus in the mid left ureter with periureteral fat stranding. Urinary bladder is within normal limits given degree of distention. Prostate contains fiducial markers. Trace pelvic free fluid is present. Degenerative changes are identified along the ischium bilaterally. Multifocal sclerotic densities are identified involving the spine and pelvis with few new foci of sclerosis suggestion of progressive osseous metastatic disease. For example, right iliac lesion previously measured 9 mm and currently measures 20 mm in craniocaudal dimension. IMPRESSION: 1. There is moderate left hydroureteronephrosis with a mid left ureteral calculus measuring 2 mm. There is associated fat stranding which may be inflammatory or infectious. Correlate with urinalysis to assess for superimposed infection. 2. There is a 13 mm axis in the right renal pelvis which may intermittently obstruct. No right-sided hydronephrosis. Mild ureteral wall thickening suggestive of a chronic process. 3. Fiducial markers are noted within the prostate. There is increase in size and number of osseous sclerotic lesions suspicious for progression of osseous metastatic disease. Correlate with prostate specific antigen. 4. 7 mm hypodensity in inferior right hepatic lobe is indeterminate, not definitively seen on prior examination. Further characterization with MRI may be of benefit if clinically warranted. Electronically signed by: Bibiana Yu MD (10/15/2019 11:09 AM) [facility]
[2019-10-15 11:13] LABS: ANISOCYTOSIS MOD
[2019-10-15 11:15] LABS: POLYCHROMASIA SLIGHT
[2019-10-15] MEDS ORDERED: HYDR-3165 PO (11:40)
[2019-10-15] MEDS ORDERED: POTA10TA17 PO (11:40)
[2019-10-15] MEDS ORDERED: LEVO750T31 PO (11:40)
[2019-10-15] MEDS ORDERED: IV NORMAL SALINE 500ML 500 ML IV ONE (11:45)
[2019-10-15] MEDS ORDERED: ONDANSETRON PF 4 MG/2 ML VIAL. IVP ONE (11:45)
[2019-10-15] MEDS ORDERED: MORPHINE SULFATE 4 MG/ML DISP.SYRIN. IV ONE (11:45)
[2019-10-15 13:02] VITALS: BP 156/83
== END 2019-10-15 13:12 | disposition home or self-care (01) ==
LOC: ER 08:43
DX: N20.0 Calculus of kidney (principal); I10 Essential (primary) hypertension
CPT/HCPCS: 36415; 74177; 80053; 81001; 83690; 84484; 85025; 93005; 96374; 96375; 96376; 99285; J2270; J2405; J3010; J7040; Q9967

== ENCOUNTER → 2019-10-20 | Outpatient (CLI) | payer MEDICARE, BC ==
[2019-10-15 13:02] VITALS: BP 156/83
[~2019-10-20] MED LIST changes: +HYDR-3165 PO; +LEVO750T31 PO; +POTA10TA17 PO
--- NOTE | 2019-10-20 15:25 | RAD ---
EXAM: Supine AP view of the abdomen DATE: 10/20/2019 1:43 PM INDICATION: HYDRONEPHROSIS W RENAL AND URETERAL CALCULOUS OBSTRUCTION COMPARISON: No Prior FINDINGS: Moderate colonic stool content is seen. No evidence for bowel obstruction. Right upper quadrant cholecystectomy clips are seen. No abnormal soft tissue mass effect. Hip joint degenerative changes are seen with chondrocalcinosis. No suspicious calcifications are seen. Evaluation for free intraperitoneal gas is limited on this supine exam. IMPRESSION: 1. No evidence for bowel obstruction. 2. Moderate colonic stool content is seen. Electronically signed by: Dat Simeon MD (10/20/2019 3:22 PM) [id number]
== END | disposition home or self-care (01) ==
LOC: DXRAD 13:35
PROVIDERS: ATTEND Family Medicine
DX: K56.41 Fecal impaction (principal); M11.259 Other chondrocalcinosis, unspecified hip; N13.2 Hydronephrosis with renal and ureteral calculous obstruction; Z90.49 Acquired absence of other specified parts of digestive tract
CPT/HCPCS: 74018

== ENCOUNTER → 2019-10-27 | Outpatient (CLI) | payer MEDICARE, BC ==
[2019-10-15 13:02] VITALS: BP 156/83
--- NOTE | 2019-10-27 13:53 | RAD ---
CT STUDY OF THE ABDOMEN AND PELVIS WITHOUT CONTRAST CLINICAL INDICATIONS: TECHNIQUE: Noncontrast helical CT scanning of the abdomen and pelvis was performed. Without contrast, the sensitivity to detect organ pathology and GI tract pathology is decreased. PQRS compliance Statement One or more of the following individualized dose reduction techniques were utilized for this study: 1. Automated exposure control 2. Adjustment of the mA and/or kV according to patient size 3. Use of iterative reconstruction technique COMPARISON: October 15, 2019. FINDINGS:Evaluation for liver lesions is difficult without IV contrast. There is a small 8 mm hypodense nodule within the dome of the right lobe of the liver which is indeterminate. This was not seen previously. This could be secondary to differences in breathing between the 2 studies. A 7 mm hypodense nodule described previously more inferiorly within the posterior segment of the right lobe of the liver cannot be seen on this noncontrast study. The spleen is not enlarged. No focal pancreatic enlargement is seen. Gallbladder surgically absent. No extrahepatic biliary ductal dilatation is seen. No adrenal mass is seen. Left renal cysts are seen. Bilateral renal stones are seen. There is a 13 mm stone within the central right renal pelvis which was seen previously. Mild pelvocaliectasis is seen on this side which is unchanged. There is mild inflammatory change around the right renal pelvis and a small amount of fluid is seen just posterior to the right renal pelvis. Therefore, this may be causing intermittent ball-valve type obstruction. The right ureter is not abnormally dilated. Mild left-sided hydronephrosis is seen. There is moderate proximal left hydroureter. The previously seen left mid ureteral stone is not as well-visualized today. On series 2 and image 75, there is a question of a 1.5 mm stone within the mid ureter here at the level of L5-S1. However, there is adjacent vascular calcification. Therefore this may or may not represent a stone.. The left ureter is not dilated distal to this point. No right-sided hydroureter or ureteral stone is seen. Urinary bladder is not abnormally distended. The prostate gland is enlarged and indents the floor of the urinary bladder. No focal aneurysmal dilatation of the abdominal aorta is seen. No enlarged abdominal or pelvic lymphadenopathy is evident. Retroperitoneal inflammation is seen more so on the left side which extends to the proximal left ureter and the left renal pelvis. Findings are consistent with inflammation related to the obstructive uropathy on the left side. No bowel obstruction is evident. No free air or free fluid or mesenteric edema is seen. Moderate size right-sided pleural effusion and small left-sided pleural effusion is seen with associated compressive atelectasis of both lower lobes. Minimal pericardial effusion is seen. Multiple lytic and osteoblastic lesions of the lumbar spine and pelvis are again evident consistent with osseous metastatic disease. IMPRESSION: Persistent hydronephrosis and hydroureter left side. The previously seen stone of the left mid ureter is not as well appreciated today. There is a question of a tiny 1.5 mm stone more distally within the left ureter at the level of L5-S1. However vascular calcifications are seen in this area. Therefore, this may or may not represent a stone. It is possible that the previous stone has been passed and there is residual ureteral edema or obstruction from pus or blood within the ureter. There is persistent left-sided retroperitoneal inflammation with associated left-sided pyeloureteritis and pyelitis on the right side. There is a 13 mm right renal pelvis stone which could be causing intermittent obstruction by ball-valve mechanism. Enlarged prostate gland with fiducial markers. Osseous metastatic disease. Bilateral pleural effusions right greater than left. The right side has not changed significantly from the prior study. Left side has increased. Associated compressive atelectasis of both lower lobes. Minimal pericardial effusion is seen. Indeterminate hepatic nodule. Electronically signed by: Dustin Medina MD (10/27/2019 1:50 PM) [facility]
== END | disposition home or self-care (01) ==
LOC: CT 08:38
PROVIDERS: ATTEND Family Medicine
DX: N13.4 Hydroureter (principal); N13.30 Unspecified hydronephrosis; N20.0 Calculus of kidney; K76.89 Other specified diseases of liver; J90 Pleural effusion, not elsewhere classified; J98.11 Atelectasis; M53.86 Other specified dorsopathies, lumbar region
CPT/HCPCS: 74176